=== PATIENT | female | born 1975 | race Caucasian/White ===

== ENCOUNTER 2018-02-10 09:44 | Emergency (ER) | payer OTHER ==
[~2018-02-10] VITALS: Ht 167.6 cm; Wt 77.1 kg
[~2018-02-10 09:44] MED LIST: XANAX 0.25 MG0.25 MG PO
[2018-02-10] MEDS ORDERED: FLEXERIL PO (10:02)
[2018-02-10] MEDS ORDERED: ZPAK PO (10:02)
[2018-02-10] MEDS ORDERED: PREDNISONE 20 M20 M1 PO (10:02)
[2018-02-10] MEDS ORDERED: NORCO 5-325 TA1 EACH PO (10:02)
[2018-02-10 10:13] VITALS: BP 143/82
== END 2018-02-10 10:14 | disposition home or self-care (01) ==
LOC: M.ERS 09:44
DX: S39.012A Strain of muscle, fascia and tendon of lower back, initial encounter (principal); F41.9 Anxiety disorder, unspecified; Z88.2 Allergy status to sulfonamides; Z88.0 Allergy status to penicillin; V89.2XXA Person injured in unspecified motor-vehicle accident, traffic, initial encounter; Y93.89 Activity, other specified; Y92.89 Other specified places as the place of occurrence of the external cause; Y99.8 Other external cause status

== ENCOUNTER 2018-10-23 11:59 | Emergency (ER) | payer OTHER ==
[~2018-10-23] VITALS: Ht 167.6 cm; Wt 75.8 kg
[~2018-10-23 11:59] MED LIST changes: +FLEXERIL PO; +NORCO 5-325 TA1 EACH PO; +PREDNISONE 20 M20 M1 PO; +ZPAK PO
[2018-10-23] MEDS ORDERED: ATIVAN0.5 MG PO (12:08)
[2018-10-23 13:10] LABS: ABSOLUTE BASOPHILS 0.1 thou/uL (0.0-0.2); ABSOLUTE EOSINOPHILS 0.2 thou/uL (0.0-0.7); ABSOLUTE LYMPHOCYTES 1.7 thou/uL (0.8-5.3); ABSOLUTE MONOCYTES 0.6 thou/uL (0.0-1.2); ABSOLUTE NEUTROPHILS 5.8 thou/uL (1.6-8.1); BASOPHILS 1.4 %; EOSINOPHILS 2.9 %; HEMATOCRIT 45.4 % (37.0-47.0); HEMOGLOBIN 15.5 gm/dL (12.0-15.0); LYMPHOCYTES 19.9 %; MCH 30.7 pg (26.0-34.0); MCV 90.2 fL (80.0-100.0); MONOCYTES 6.9 %; MPV 7.5 fl. (7.2-11.1); NUCLEATED RBCS 0 /100WBC; PLATELET COUNT* 222 thou/uL (150-400); POLYS 68.9 %; RBC 5.04 mil/uL (4.20-5.00); RDW-CV 12.9 % (10.5-14.5); WBC 8.5 thou/uL (4.0-11.0)
[2018-10-23 14:12] LABS: ANION GAP 7 mmol/L (7-16); BUN 9 mg/dL (7-18); CALCIUM 8.7 mg/dL (8.5-10.1); CHLORIDE 105 mmol/L (98-107); CO2 28 mmol/L (21-32); CREATININE 0.7 mg/dL (0.6-1.3); GLUCOSE 90 mg/dL (70-99); POTASSIUM 4.1 mmol/L (3.5-5.1); SODIUM 140 mmol/L (136-145)
[2018-10-23 14:21] LABS: APTT 28.2 Seconds (25.0-31.3); PROTIME 10.3 Seconds (9.20-11.50)
[2018-10-23 14:33] LABS: ALBUMIN 3.4 g/dL (3.4-5.0); ALKALINE PHOSPHATASE 63 U/L (46-116); CK-MB MASS 0.5 ng/mL (<0.5-3.6); LIPASE 99 U/L (73-393); NT-PRO BRAIN NAT PEPTIDE 50 pg/mL (<300); SGOT 16 U/L (15-37); SGPT 30 U/L (30-65); TOTAL BILIRUBIN 0.5 mg/dL (<0.1-1.0); TOTAL PROTEIN 6.2 g/dL (6.4-8.2); TROPONIN-I LEVEL <0.06 ng/mL (<0.06)
[2018-10-23 14:45] VITALS: BP 122/85
--- NOTE | 2018-10-24 12:58 | EKG ---
[place] [address] ELECTROCARDIOGRAM REPORT Name: MARIA DE JESUS QUINONES Room: [facility]#: [id number] Admission: 10/23/18 Attend Phys: Discharge: 10/23/18 Date of : 77 Report #: [id number] THIS REPORT FOR: //name// [facility] ED Test Date: 2018-10-23 Test Time: 12:03:39 Pat Name: MARIA DE JESUS QUINONES Department: Room: Gender: F Personnel Officer: sidra : 1975 Requested By: Tunde Nogueira Order Number: [id number] MD: Mateusz Rollins Measurements Intervals [place] Rate: 96 P: 67 WV: 151 QRS: -59 QRSD: 88 T: 18 QT: 330 QTc: 417 Interpretive Statements Sinus rhythm Inferior infarct, old Baseline wander in lead(s) V3 Compared to ECG 03/08/2015 08:43:26 Sinus tachycardia no longer present Left-axis deviation no longer present Myocardial infarct finding still present Electronically Signed On 10-24-2018 12:58:28 CLIENT SERVICE SUPERVISOR by Mateusz Rollins [email or web address] <ELECTRONICALLY SIGNED> By: Mateusz Rollins MD, FACC 10/24/18 1258 1203 1203 Mateusz Rollins MD, FAC /EPI
== END 2018-10-23 14:45 | disposition home or self-care (01) ==
LOC: M.ERS 11:59
PROVIDERS: Family Medicine
DX: R07.89 Other chest pain (principal); F41.9 Anxiety disorder, unspecified; F17.210 Nicotine dependence, cigarettes, uncomplicated; Z88.0 Allergy status to penicillin; Z88.2 Allergy status to sulfonamides

== ENCOUNTER 2021-03-09 04:00 | Emergency (ER) | payer OTHER ==
[~2021-03-09] VITALS: Ht 167.6 cm; Wt 72.6 kg
[~2021-03-09 04:00] MED LIST changes: +ATIVAN0.5 MG PO
[2021-03-09 05:37] LABS: HEMATOCRIT 47.3 % (37.0-47.0); HEMOGLOBIN 15.6 gm/dL (12.0-15.0); MCH 30.2 pg (26.0-34.0); MCV 91.4 fL (80.0-100.0); MPV 7.6 fl. (7.2-11.1); RBC 5.18 mil/uL (4.20-5.00); RDW-CV 14.3 % (10.5-14.5)
[2021-03-09 05:46] LABS: CALCIUM 8.5 mg/dL (8.5-10.1); CREATININE 0.7 mg/dL (0.6-1.3); POTASSIUM 3.8 mmol/L (3.5-5.1)
[2021-03-09 07:10] VITALS: BP 118/51
--- NOTE | 2021-03-10 09:47 | EKG ---
[place] [address] ELECTROCARDIOGRAM REPORT Name: MARIA DE JESUS QUINONES Room: [facility]#: [id number] Admission: 03/09/21 Attend Phys: Discharge: 03/09/21 Date of : 77 Date of Service: 03/09/21 0505 Report #: [id number] THIS REPORT FOR: //name// [facility] ED Test Date: 2021-03-09 Test Time: 05:05:59 Pat Name: MARIA DE JESUS QUINONES Department: Room: Gender: Shuttleless Loom Weaver: [facility] : 1975 Requested By: Crystal Cooper Order Number: [id number] MD: Sonu Crocker Measurements Intervals [place] Rate: 90 P: 65 OR: 147 QRS: -17 QRSD: 91 T: 17 QT: 353 QTc: 432 Interpretive Statements Sinus rhythm Borderline left axis deviation Low voltage, extremity leads ST elev, probable normal early repol pattern Compared to ECG 10/23/2018 12:03:39 Low QRS voltage now present ST (T wave) deviation now present Myocardial infarct finding no longer present There is minimal ST elevation in leads I and aVL. Cannot exclude acute anterolateral infarct Electronically Signed On 03-10-2021 9:47:37 CDT by Sonu Crocker [email or web address] <ELECTRONICALLY SIGNED> By: Leonor Crocker MD, [facility] 03/10/21 0947 0505 0505 Leonor Crocker MD, [facility] /EPI
== END 2021-03-09 07:10 ==
LOC: M.ERS 04:00
PROVIDERS: Personal Emergency Response Attendant
DX: S20.219A Contusion of unspecified front wall of thorax, initial encounter (principal); Z88.0 Allergy status to penicillin; Z88.2 Allergy status to sulfonamides; V49.09XA Driver injured in collision with other motor vehicles in nontraffic accident, initial encounter; Y93.89 Activity, other specified; Y92.89 Other specified places as the place of occurrence of the external cause; Y99.8 Other external cause status